=== PATIENT | female | born 1985 | race African-American/Black ===

== ENCOUNTER 2019-04-06 04:06 | Emergency (ER) | payer OTHER ==
[~2019-04-06] VITALS: Ht 162.6 cm; Wt 95.3 kg
[2019-04-06] MEDS ORDERED: VITAMIN D400 UNIT PO (04:13)
[2019-04-06] MEDS ORDERED: PROBIOTIC1 EAC7 PO (04:14)
[2019-04-06 05:13] LABS: ABSOLUTE NEUTROPHILS 4.7 thou/uL (1.4-8.2); BASOPHILS 0.2 % (0.0-2.0); EOSINOPHILS 3.2 % (0.0-3.0); HEMATOCRIT 39.2 % (37.0-47.0); LYMPHOCYTES 29.8 % (24.0-44.0); MCH 32.4 pg (26.0-34.0); MCHC 33.2 g/dL (28.0-37.0); MCV 97.5 fL (80.0-100.0); MONOCYTES 5.9 % (1.0-8.0); PLATELET COUNT 415 thou/uL (150-400); POLYS 60.9 % (36.0-66.0); RBC 4.02 mil/uL (4.20-5.00); RDW 12.6 % (10.5-14.5); WBC 7.7 thou/uL (4.0-11.0)
[2019-04-06 05:18] LABS: URINE BILIRUBIN NEGATIVE (Negative); URINE BLOOD TRACE (Negative); URINE CLARITY SL CLOUDY; URINE COLOR YELLOW; URINE GLUCOSE-RANDOM* NEGATIVE (Negative); URINE KETONES NEGATIVE (Negative); URINE LEUKOCYTES-REFLEX NEGATIVE (Negative); URINE NITRITE-REFLEX NEGATIVE (Negative); URINE PROTEIN (DIPSTICK) NEGATIVE (Negative); URINE SPECIFIC GRAVITY 1.025 (1.005-1.035); URINE UROBILINOGEN 0.2 E.U./dl (0.2-1.0)
[2019-04-06 05:21] LABS: ANION GAP 6 mmol/L (7-16); BUN 10 mg/dL (7-18); CHLORIDE 103 mmol/L (98-107); CO2 29 mmol/L (21-32); CREATININE 0.7 mg/dL (0.6-1.0); GLUCOSE 95 mg/dL (74-106); POTASSIUM 3.8 mmol/L (3.5-5.1); SODIUM 138 mmol/L (136-145)
[2019-04-06 05:27] LABS: ALBUMIN 3.3 g/dL (3.4-5.0); DIRECT BILIRUBIN < 0.1 mg/dL (<0.1-0.2); LIPASE 57 U/L (73-393); SGOT 13 U/L (15-37); SGPT 25 U/L (30-65); TOTAL BILIRUBIN 0.3 mg/dL (<0.1-1.0); TOTAL PROTEIN 7.4 g/dL (6.4-8.2)
[2019-04-06 06:17] VITALS: BP 107/68
== END 2019-04-06 06:39 | disposition home or self-care (01) ==
LOC: ER 04:06
PROVIDERS: Emergency Medicine
DX: R10.30 Lower abdominal pain, unspecified (principal)